=== PATIENT | male | born 1980 | race Caucasian/White ===

== ENCOUNTER 2018-01-07 21:54 | Emergency (ER) | payer OTHER ==
[~2018-01-07] VITALS: Ht 185.4 cm; Wt 83.6 kg
[2018-01-07 22:00] VITALS: BP 121/79
--- NOTE | 2018-01-07 22:11 | ED.ADGEN ---
Adult General Chief Complaint Chief Complaint ".. I having some Low abd. pain... and back pain.. I did get dehydrated this week..." HPI HPI Patient is a 37 year old male who presents with above hx and complaints lower Lt. abd. pain. Pt. was eating cake in the waiting room . Patient denies any history of immunosuppression. Patient denies any travel or specific ill contacts. Patient denies any trauma. Patient denies any previous history of kidney stones. Patient does not regularly follow with a healthcare provider. Patient complains of some dysuria. Review of Systems Review of Systems Constitutional: Denies fever or chills [] Eyes: Denies change in visual acuity, redness, or eye pain [] HENT: Denies nasal congestion or sore throat [] Respiratory: Denies cough or shortness of breath [] Cardiovascular: No additional information not addressed in HPI [] GI: Complaints of left lower quadrant abdominal pain, no current nausea, vomiting, bloody stools or diarrhea [] : Complaints of dysuria Musculoskeletal: Denies back pain or joint pain [] Integument: Denies rash or skin lesions [] Neurologic: Denies headache, focal weakness or sensory changes [] Endocrine: Denies polyuria or polydipsia [] All other systems were reviewed and found to be within normal limits, except as documented in this note. Family History Family History Mother has history of Crohn's Current Medications Current Medications Current Medications Medications (Trade) Dose Ordered Sig/[facility] Start Time Stop Time Status Last Admin Dose Admin Magnesium Citrate (Citroma) 296 ml 1X ONCE 01/07/18 23:00 01/07/18 23:01 MD See nursing for home meds Allergies Allergies Allergies Coded Allergies Type Severity Reaction Last Updated Verified Unable to Assess 01/07/18 No No known drug allergies Physical Exam Physical Exam Constitutional: Well developed, well nourished, moderate acute distress, non- toxic appearance. [] HENT: Normocephalic, atraumatic, bilateral external ears normal, oropharynx moist, no oral exudates, nose normal. [] Eyes: PERRLA, EOMI, conjunctiva normal, no discharge. [] Fundus benign Neck: Normal range of motion, no tenderness, supple, no stridor. [] Cardiovascular:Heart rate regular rhythm, no murmur [] Lungs & Thorax: Bilateral breath sounds equal apex. On auscultation [] Abdomen: Bowel sounds normal, soft, left lower quadrant tenderness, no masses, no pulsatile masses. [] Very Distended. Declined rectal at this time. Skin: Warm, dry, no erythema, no rash. [] Back: No tenderness, no CVA tenderness. [] Extremities: No tenderness, no cyanosis, no clubbing, ROM intact, no edema. [] No psoas. No obturator sign Neurologic: Alert and oriented X 3, normal motor function, normal sensory function, no focal deficits noted. [] Psychologic: Affec(anxious, judgement normal, mood normal. [] Current Patient Data Lab Results Laboratory Tests Test 01/07/18 22:25 Urine Collection Type Unknown Urine Color Yellow Urine Clarity Clear Urine pH 5.5 Urine Specific [place] 1.020 Urine Protein Neg (NEG-TRACE) Urine Glucose (UA) Neg mg/dL (NEG) Urine Ketones (Stick) Neg mg/dL (NEG) Urine Blood Neg (NEG) Urine Nitrite Neg (NEG) Urine Bilirubin Neg (NEG) Urine Urobilinogen Dipstick 0.2 mg/dL (0.2 mg/dL) Urine Leukocyte Esterase Neg (NEG) Urine RBC 0 /HPF (0-2) Urine WBC Rare /HPF (0-4) Urine Squamous Epithelial Cells None /LPF Urine Bacteria 0 /HPF (0-FEW) Urine Hyaline Casts Occ /HPF Urine Mucus Slight /LPF EKG EKG [] Radiology/Procedures Radiology/Procedures I interpretation of abdomen film shows no free air in the diaphragm. Increased stool.[] Course & Med Decision Making Course & Med Decision Making Pertinent Labs and Imaging studies reviewed. (See chart for details) a clear fluid diet only for the next 48 hours. No solids or milk products. Must allow bowel rest. Follow-up primary care. Return if any concerns. Tylenol and ibuprofen for pain. [] Final Impression Final Impression 1. Abdomen pain 2. Constipation[] Dragon Disclaimer Dragon Disclaimer This electronic medical record was generated, in whole or in part, using a voice recognition dictation system. EYAD CURRY MD Jan 07, 2018 22:11
[2018-01-07 22:49] LABS: BILIRUBIN,URINE NEG (NEG); CLARITY,URINE CLEAR; COLOR,URINE YELLOW; GLUCOSE,URINE NEG (NEG)
[2018-01-07 22:50] LABS: BACTERIA,URINE 0 /HPF (0-FEW); HYALINE CASTS, URINE OCC /HPF; NITRITE,URINE NEG (NEG); RBC,URINE 0 /HPF (0-2); UROBILINOGEN,URINE 0.2 mg/dL (0.2 mg/dL); WBC,URINE RARE /HPF (0-4)
[2018-01-07] MEDS ORDERED: MAGNESIUM CITRATE 296 ML SOLUTION. PO ONE (23:00)
--- NOTE | 2018-01-07 23:23 | RAD ---
EXAM: Two view abdomen with one view chest HISTORY: Left abdominal pain. COMPARISON: None. FINDINGS: A frontal view of the chest and supine/upright views of the abdomen are obtained. There are no confluent infiltrates. There is no pneumothorax or pleural effusion. The heart is not enlarged. There is no pneumoperitoneum. There are no distended small bowel loops or significant air-fluid levels. There is gas distally. Stool throughout the right colon suggests constipation. IMPRESSION: 1. No confluent infiltrates. 2. No evidence of obstruction. Correlate for constipation. Electronically signed by: Carlos Vines MD (01/07/2018 11:20 PM) [facility]
== END 2018-01-07 23:05 | disposition home or self-care (01) ==
LOC: ER 21:54
DX: K59.00 Constipation, unspecified (principal); R30.0 Dysuria
CPT/HCPCS: 74022; 81001; 99285-25